=== PATIENT | male | born 1980 | race Caucasian/White ===

== ENCOUNTER 2024-01-01 11:01 | Inpatient (IN) | payer SELFPAY ==
[2024-01-01] MEDS: Acetaminophen 325 MG Tab PO ONE (11:56)
[2024-01-01 12:10] LABS: BASOPHILS PERCENT AUTO 0.2 % (0.0-1.0); EOSINOPHILS PERCENT AUTO 0.1 % (0.0-6.0); HEMATOCRIT 42.7 % (42.0-52.0); HEMOGLOBIN 15.8 gm/dl (14.0-18.0); IMMATURE GRAN ABSOLUTE AUTO 0.04 K/mm3 (0.00-0.05); IMMATURE GRAN PERCENT AUTO 0.4 % (0.0-0.4); LYMPHOCYTES ABSOLUTE AUTO 0.5 K/mm3 (1.0-4.8); MEAN CORPUSCULAR HEMOGLOBIN 34.3 pg (28.0-32.0); MEAN CORPUSCULAR VOLUME 92.6 fl (83.0-99.0); MONOCYTES ABSOLUTE AUTO 0.5 K/mm3 (0.0-0.8); NEUTROPHILS PERCENT AUTO 88.3 % (41.0-71.0); PLATELET COUNT,PLT 358 K/mm3 (150-400); RED BLOOD CELL COUNT 4.61 M/mm3 (4.52-5.90); WHITE BLOOD CELL COUNT,WBC 9.02 K/mm3 (3.9-11.3)
[2024-01-01 12:19] LABS: CORONAVIRUS COVID-19 NAA NEGATIVE (NEGATIVE); INFLUENZA A NAA NEGATIVE (NEGATIVE)
[2024-01-01 12:37] LABS: A/G RATIO 0.5 (1-2); ALBUMIN 3.1 g/dl (3.4-5.0); ANION GAP 16.2 (5-15); BILIRUBIN TOTAL 1.8 mg/dL (0.2-1.0); BUN/CREATININE RATIO 8.9 (14-18); CALCIUM 9.1 mg/dL (8.5-10.1); CREATININE 0.9 mg/dL (0.7-1.3); EST CRCL DRUG DOSING (CG) 109.27 mL/min; PROTEIN TOTAL,TP 9.9 g/dl (6.4-8.2)
[2024-01-01 12:43] LABS: POTASSIUM,K 2.2 mEq/L (3.5-5.1)
[2024-01-01] MEDS: Potassium Chloride 20 MEQ Tab.ER PO ONE (12:50)
[2024-01-01] MEDS: Potassium Chloride 10 MEQ in Premix Bag 1 BAG IV SCH ×3 (13:11→20:03)
[2024-01-01] MEDS: Sodium Chloride 0.9% 45 ML IV SCH (13:13)
[2024-01-01] MEDS: Iopamidol 755 Mg/ML 100 ML Bottle IVPUSH ONE (13:13)
[2024-01-01] MEDS: Sodium Chloride 0.9% 10 ML Syringe FLUSH PRN (13:13)
[2024-01-01] MEDS ORDERED: Sodium Chloride 0.9% 500 ML IV SCH (13:15)
[2024-01-01] MEDS: Losartan 50 MG Tab PO ONE (14:01)
[2024-01-01] MEDS ORDERED: Docusate Sodium 100 MG Cap PO PRN (14:11)
[2024-01-01] MEDS ORDERED: Ondansetron 4 MG/2 ML SDV IV PRN (14:11)
[2024-01-01] MEDS ORDERED: Potassium Chloride 10 MEQ in Premix Bag 1 BAG IV SCH (14:30)
[2024-01-01 14:41] LABS: INR 1.17; PROTHROMBIN TIME 12.4 SECONDS (9.7-12.0)
[2024-01-01] MEDS ORDERED: Sodium Chloride 0.9% 1,000 ML IV SCH ×2 (15:00→16:00)
[2024-01-01 15:01] LABS: HEPATITIS C AB NON-REACTIVE (Non-React)
[2024-01-01 15:12] LABS: FOLIC ACID 3.6 ng/mL (8.6-58.9)
[2024-01-01] MEDS ORDERED: Fluconazole 100 MG Tab PO SCH (15:15)
[2024-01-01 15:16] LABS: APPEARANCE,URINE CLEAR (Clear); BILIRUBIN,URINE NEGATIVE (Negative); COLOR,URINE YELLOW (Yellow); GLUCOSE,URINE NEGATIVE (Negative); KETONES,URINE NEGATIVE (Negative); LEUKOCYTE ESTERASE,URINE NEGATIVE (Negative); NITRITE,URINE NEGATIVE (Negative); OCCULT BLOOD,URINE 2+ (Negative); PROTEIN,URINE 3+ (Negative)
[2024-01-01] MEDS ORDERED: Albuterol 0.083% 2.5 MG/3 ML Neb Soln NEB PRN (15:17)
[2024-01-01] MEDS ORDERED: Albuterol/Ipratropium 3.0-0.5 MG/3 ML Neb Soln NEB PRN (15:17)
[2024-01-01 15:23] LABS: BARBITURATE SCREEN,URINE NEGATIVE (CUTOFF=200); BENZODIAZEPINES SCREEN,URINE NEGATIVE (CUTOFF=150); BUPRENORPHINE SCREEN,URINE NEGATIVE (CUTOFF=10); METHADONE SCREEN, URINE NEGATIVE (CUT0FF=200); METHAMPHETAMINES SCREEN, URINE NEGATIVE (CUTOFF=500); OXYCODONE SCREEN,URINE NEGATIVE (CUT0FF=100); THC SCREEN,URINE 20 NG/ML NEGATIVE (CUTOFF=50)
[2024-01-01 15:24] LABS: AMPHETAMINES SCREEN, URINE NEGATIVE (CUTOFF=500)
[2024-01-01] MEDS: Folic Acid 1 MG Tab PO SCH (15:26)
[2024-01-01] MEDS: Thiamine 100 MG Tab PO SCH (15:26)
[2024-01-01] MEDS: Sodium Chloride 0.9% 1,000 ML IV SCH ×2 (15:26→23:01)
[2024-01-01] MEDS: Fluconazole 100 MG Tab PO SCH (15:38)
[2024-01-01] MEDS: Nicotine 14 MG/24 Hr Patch TRDERM SCH (15:41)
[2024-01-01] MEDS: Sulfamethoxazole/Trimethoprim 800-160 MG Tab PO SCH (15:42)
[2024-01-01 16:16] LABS: BACTERIA,URINE FEW /hpf (FEW); SQUAMOUS EPITHELIAL CELLS,UR 0-5 /hpf (0-5); WBC,URINE 0-5 /hpf (0-5)
[2024-01-01 16:17] LABS: MUCUS,URINE FEW /hpf (FEW)
[2024-01-01] MEDS: Acetaminophen/Butalbital/Caffeine 325-50-40 MG Tab PO ONE (16:25)
[2024-01-01] MEDS: cefTRIAXone 2 GM in Sodium Chloride 0.9% 100 ML IV SCH (16:26)
[2024-01-01] MEDS: Magnesium Sulfate/Water 4 GM in Premix Bag 1 BAG IV ONE (17:25)
[2024-01-01] MEDS: Enoxaparin 40 MG/0.4 ML Syringe SUBCUT SCH (19:03)
[2024-01-01] MEDS: Doxycycline 100 MG in Sodium Chloride 0.9% 100 ML IV SCH ×2 (19:59→22:51)
[2024-01-01] MEDS ORDERED: Doxycycline 100 MG in Sodium Chloride 0.9% 100 ML IV SCH (21:00)
[2024-01-02 00:38] LABS: C. TRACHOMATIS BY PCR NOT DETECTED; N. GONORRHOEAE BY PCR NOT DETECTED
[2024-01-02] MEDS: Acetaminophen 325 MG Tab PO PRN (00:49)
[2024-01-02 05:00] LABS: BASOPHILS PERCENT AUTO 0.4 % (0.0-1.0); HEMATOCRIT 42.2 % (42.0-52.0); HEMOGLOBIN 15.3 gm/dl (14.0-18.0); IMMATURE GRAN ABSOLUTE AUTO 0.06 K/mm3 (0.00-0.05); IMMATURE GRAN PERCENT AUTO 0.8 % (0.0-0.4); LYMPHOCYTES ABSOLUTE AUTO 0.4 K/mm3 (1.0-4.8); LYMPHOCYTES PERCENT AUTO 5.6 % (24.0-44.0); MEAN CORPUSCULAR HEMOGLOBIN 33.6 pg (28.0-32.0); MEAN CORPUSCULAR HGB CONC 36.3 g/dl (32.0-36.0); MEAN CORPUSCULAR VOLUME 92.7 fl (83.0-99.0); MEAN PLATELET VOLUME 9.4 fl (9.4-12.4); MONOCYTES ABSOLUTE AUTO 0.6 K/mm3 (0.0-0.8); MONOCYTES PERCENT AUTO 8.2 % (0.0-8.0); NEUTROPHILS ABSOLUTE AUTO 6.2 K/mm3 (1.8-7.7); PLATELET COUNT,PLT 324 K/mm3 (150-400); RED BLOOD CELL COUNT 4.55 M/mm3 (4.52-5.90); WHITE BLOOD CELL COUNT,WBC 7.31 K/mm3 (3.9-11.3)
[2024-01-02 05:36] LABS: A/G RATIO 0.4 (1-2); ALBUMIN 2.9 g/dl (3.4-5.0); ANION GAP 16.6 (5-15); BILIRUBIN TOTAL 1.4 mg/dL (0.2-1.0); CALCIUM 8.3 mg/dL (8.5-10.1); CREATININE 0.8 mg/dL (0.7-1.3); EST CRCL DRUG DOSING (CG) 122.93 mL/min; MAGNESIUM 1.5 mg/dL (1.8-2.4); PHOSPHORUS 1.7 mg/dL (2.6-4.7); POTASSIUM,K 2.6 mEq/L (3.5-5.1); PROTEIN TOTAL,TP 9.7 g/dl (6.4-8.2)
[2024-01-02 08:04] LABS: HEMOGLOBIN A1C 5.4 %
[2024-01-02] MEDS: Magnesium Sulfate/Water 2 GM in Premix Bag 1 BAG IV ONE (08:16)
[2024-01-02] MEDS: Potassium Phosphates 30 MMOLE in Sodium Chloride 0.9% 500 ML IV ONE (08:16)
[2024-01-02] MEDS: Potassium Chloride 10 MEQ in Premix Bag 1 BAG IV SCH (08:17)
[2024-01-02] MEDS: oxyCODONE 5 MG Tab PO PRN (08:20)
[2024-01-02] MEDS: amLODIPine 5 MG Tab PO SCH (08:21)
[2024-01-02] MEDS: Potassium Chloride 20 MEQ Tab.ER PO ONE (08:24)
[2024-01-02] MEDS: hydrALAZINE 20 MG/ML SDV IVPUSH ONE (08:27)
[2024-01-02] MEDS ORDERED: Enoxaparin 40 MG/0.4 ML Syringe SUBCUT SCH (09:00)
[2024-01-02] MEDS ORDERED: hydrALAZINE 20 MG/ML SDV IVPUSH PRN (09:36)
[2024-01-02 09:37] LABS: HEPATITIS B SURFACE AG NONREACTIVE (NONREACTIVE)
[2024-01-02 10:41] LABS: PROTEIN,CSF 83.8 mg/dl (15-45)
[2024-01-02 11:09] LABS: TUBE NUMBER,CSF 2
[2024-01-02 11:10] LABS: APPEARANCE CSF HAZY (CLEAR); COLOR,CSF COLORLESS; RBC,CSF 3000 cells/uL (0-0); SUPERNATANT APPEAR,CSF NO XANTHOCHROMIA; TUBE VOLUME,CSF 10.75 ml; WBC,CSF 39 cells/uL (0-5)
[2024-01-02 11:11] LABS: MONONUCLEAR, CSF 97.3 % (70.0-90.0); POLYMORPHONUCLEAR, CSF 2.75 % (2-4)
[2024-01-02] MEDS: Enoxaparin 40 MG/0.4 ML Syringe SUBCUT SCH (15:00)
[2024-01-02] MEDS ORDERED: atorvaSTATin 40 MG Tab PO SCH (21:00)
[2024-01-03 05:50] LABS: BASOPHILS ABSOLUTE AUTO 0.1 K/mm3 (0.0-0.2); BASOPHILS PERCENT AUTO 1.7 % (0.0-1.0); EOSINOPHILS ABSOLUTE AUTO 0.1 K/mm3 (0.0-0.4); EOSINOPHILS PERCENT AUTO 1.1 % (0.0-6.0); HEMATOCRIT 40.2 % (42.0-52.0); HEMOGLOBIN 14.3 gm/dl (14.0-18.0); IMMATURE GRAN ABSOLUTE AUTO 0.09 K/mm3 (0.00-0.05); IMMATURE GRAN PERCENT AUTO 1.7 % (0.0-0.4); LYMPHOCYTES ABSOLUTE AUTO 0.8 K/mm3 (1.0-4.8); LYMPHOCYTES PERCENT AUTO 14.6 % (24.0-44.0); MEAN CORPUSCULAR HEMOGLOBIN 33.8 pg (28.0-32.0); MEAN CORPUSCULAR HGB CONC 35.6 g/dl (32.0-36.0); MEAN PLATELET VOLUME 9.6 fl (9.4-12.4); MONOCYTES ABSOLUTE AUTO 0.6 K/mm3 (0.0-0.8); NEUTROPHILS ABSOLUTE AUTO 3.7 K/mm3 (1.8-7.7); NEUTROPHILS PERCENT AUTO 69.9 % (41.0-71.0); RED BLOOD CELL COUNT 4.23 M/mm3 (4.52-5.90); WHITE BLOOD CELL COUNT,WBC 5.35 K/mm3 (3.9-11.3)
[2024-01-03 06:07] LABS: PLATELET COUNT,PLT 236 K/mm3 (150-400)
[2024-01-03 06:24] LABS: A/G RATIO 0.4 (1-2); ALBUMIN 2.4 g/dl (3.4-5.0); ANION GAP 14.6 (5-15); CALCIUM 8.2 mg/dL (8.5-10.1); EST CRCL DRUG DOSING (CG) 98.35 mL/min; MAGNESIUM 1.8 mg/dL (1.8-2.4); PHOSPHORUS 2.3 mg/dL (2.6-4.7); POTASSIUM,K 3.6 mEq/L (3.5-5.1); PROTEIN TOTAL,TP 8.1 g/dl (6.4-8.2)
[2024-01-03] MEDS: Sulfamethoxazole/Trimethoprim 800-160 MG Tab PO SCH (13:06)
[2024-01-03] MEDS: cefTRIAXone 2 GM in Sodium Chloride 0.9% 100 ML IV SCH (13:06)
[2024-01-03 14:41] LABS: CD4 % 2 % (32-64); CD4 ABSOLUTE 8 cells/uL (430-1800)
[2024-01-03 14:41] LABS: TOXOPLASMA IGG <3.0 IU/mL (<=8.8); TOXOPLASMA IGM <3.0 AU/mL (<=7.9)
[2024-01-03 21:42] LABS: HIV 1,2 COMBO AG/AB CIA W/RFLX Reactive (Negative)
[2024-01-04] MEDS ORDERED: Fluconazole 100 MG Tab PO SCH (09:00)
[2024-01-05 05:47] LABS: HIV SEROLOGIC INTERP Pos HIV-1 Ab; HIV-1 AB Positive (Negative); HIV-2 AB Negative (Negative)
[2024-01-05] MEDS ORDERED: FLU (Flulaval Quad) 2023-24(6MOS UP)/PF 60 MCG/0.5 ML Syringe IM ONE (15:45)
[2024-01-05 15:46] LABS: QNTIFERON MITOGEN MIN NIL 1.92 IU/mL; QNTIFERON NIL 0.18 IU/mL; QNTIFERON PLUS TB1 MINUS NIL 0.01 IU/mL (0.00-0.34); QNTIFERON TB GOLD PLUS Negative (Negative)
[2024-01-05 22:42] LABS: VDRL, CSF Non Reactive (Non Reactive)
== END 2024-01-03 14:43 | DRG 974 ==
LOC: JD.ED 11:01 → JD.MS 13:49
PROVIDERS: ADMIT Internal Medicine; ATTEND Internal Medicine
PROC: 009U3ZX Drainage of Spinal Canal, Percutaneous Approach, Diagnostic (ICD-10-PCS; principal; 2024-01-01)
DX: J18.9 Pneumonia, unspecified organism (principal); B45.1 Cerebral cryptococcosis; B20 Human immunodeficiency virus [HIV] disease; G03.8 Meningitis due to other specified causes; E87.1 Hypo-osmolality and hyponatremia; B37.0 Candidal stomatitis; R29.1 Meningismus; G93.49 Other encephalopathy; F17.210 Nicotine dependence, cigarettes, uncomplicated; I10 Essential (primary) hypertension; E86.0 Dehydration; E87.6 Hypokalemia; R91.8 Other nonspecific abnormal finding of lung field; E78.5 Hyperlipidemia, unspecified; F10.90 Alcohol use, unspecified, uncomplicated; R79.89 Other specified abnormal findings of blood chemistry; R74.01 Elevation of levels of liver transaminase levels; E88.09 Other disorders of plasma-protein metabolism, not elsewhere classified; K76.0 Fatty (change of) liver, not elsewhere classified; E83.42 Hypomagnesemia; E83.39 Other disorders of phosphorus metabolism; E53.9 Vitamin B deficiency, unspecified; H53.2 Diplopia; M54.2 Cervicalgia
CPT/HCPCS: 0240U; 36415; 62270; 70450; 70450-26; 71046; 71046-26; 71275; 71275-26; 76705; 76705-26; 80053; 80061; 80306; 80307; 81001; 82607; 82746; 82945; 82955; 83036; 83735; 83880; 83930; 84100; 84157; 84484; 85025; 85379; 85610; 86361; 86480; 86592; 86701; 86702; 86777; 86778; 86803; 87040; 87070; 87077; 87102; 87186; 87205; 87340; 87389; 87483; 87491; 87591; 87899; 89050; 93005; 93010; 93307; 94667; 94668; 94760; 94761; 96365; 99285; 99285-25; A9270-GY; G0433; J0360; J0696; J1650; J3475; J3480; J3490; J7030; J7040; Q9967